=== PATIENT | male | born 1975 | race Caucasian/White ===

== ENCOUNTER 2017-07-02 11:32 | Emergency (ER) | payer OTHER ==
[~2017-07-02] VITALS: Wt 80.0 kg
[2017-07-02] MEDS ORDERED: METOCLOPRAMIDE 10 MG INJ IV ONE (12:00)
[2017-07-02] MEDS ORDERED: DIPHENHYDRAMINE 50 MG INJ IV ONE (12:00)
[2017-07-02] MEDS ORDERED: SOD CHLORIDE 0.9% 1,000 ML IV ONE (12:00)
[2017-07-02] MEDS ORDERED: BUTA1CAP38 PO (12:20)
--- NOTE | 2017-07-02 12:24 | ERD ---
ER Documentation Chief Complaint Date/Time DATE: 07/02/17 TIME: 12:21 Chief Complaint HEADACHE, NAUSEA, VOMITING, NO CP HPI 41-year-old male with a history of epilepsy comes in for a headache that has been going on for 2 days. The headache is generalized he does have some photophobia with it. He has no neurological symptoms currently. He did try taking ibuprofen with minimal relief. Is no fevers chills or weakness. ROS All systems reviewed and are negative except as per history of present illness. Medications Home Meds Active Scripts Vdydelkrwq-Zsavtpjzcthxu-Ssjyfjsd* (Fioricet*) 50-300-40 Mg Capsule, 1 CAP PO Q4H Y for HEADACHE, #14 CAP Prov:JOSEPH ALMAGUER DO 07/02/17 Allergies Allergies: Coded Allergies: No Known Allergy (Unverified , 07/02/17) PMhx/Soc History of Surgery: Yes (LEFT PACEMAKER) Anesthesia Reaction: No Hx Neurological Disorder: Yes (EPILEPSY) Hx Respiratory Disorders: No Hx Cardiac Disorders: Yes (PACEMAKER) Hx Psychiatric Problems: No Hx Miscellaneous Medical Probl: No Hx Alcohol Use: No Hx Substance Use: No Hx Tobacco Use: No Smoking Status: Never smoker Physical Exam Vitals Vital Signs Date Time Temp Pulse Resp B/P Pulse Ox O2 Delivery O2 Flow Rate FiO2 07/02/17 12:02 97.5 67 18 143/77 97 Room Air 07/02/17 11:35 96.6 72 18 125/82 97 Physical Exam Const: [] Mild distress Head: Atraumatic Eyes: Normal Conjunctiva, EOMI, PERRLA ENT: Normal External Ears, Nose and Mouth. Neck: Full range of motion..~ No meningismus. Abd: Soft, non tender, non distended. Normal bowel sounds Skin: No petechiae or rashes Neur: Awake and alert and oriented 3, cranial 2 through 12 intact, no cerebellar deficits, normal gait Psych: Normal Mood and Affect Results 24 hrs Current Medications Medications (Trade) Dose Ordered Sig/Andreina Route PRN Reason Start Time Stop Time Status Last Admin Dose Admin Sodium Chloride (NS) 1,000 ml @ 1,000 mls/hr Q1H ONCE IV 07/02/17 12:00 07/02/17 12:59 07/02/17 11:56 Diphenhydramine HCl (Benadryl) 12.5 mg ONCE ONCE IV 07/02/17 12:00 07/02/17 12:01 DC 07/02/17 11:55 Metoclopramide HCl (Reglan) 10 mg ONCE ONCE IV 07/02/17 12:00 07/02/17 12:01 DC 07/02/17 11:55 Procedures/MDM 1-year-old male with acute headache. Today she gets headaches about once a month. This is an unusual headache for him. Did not respond well to home ibuprofen. He was given a headache cocktail here normal saline, Benadryl IV, Reglan 10 mg IV. This reduces headache quickly. He is now only tired resulting from the Benadryl. Normal neurological exam. My discharge her with instructions to follow-up with his primary care doctor next 2-3 days and call his neurologist. Discharging with Fiangelaet Departure Diagnosis: Primary Impression: Acute headache Condition: Stable Patient Instructions: Headache, Unspecified Referrals: [facility], [facility]1983 CLINICS YOU HAVE RECEIVED A MEDICAL SCREENING EXAM AND THE RESULTS INDICATE THAT YOU DO NOT HAVE A CONDITION THAT REQUIRES URGENT TREATMENT IN THE EMERGENCY DEPARTMENT. FURTHER EVALUATION AND TREATMENT OF YOUR CONDITION CAN WAIT UNTIL YOU ARE SEEN IN YOUR DOCTORS OFFICE WITHIN THE NEXT 1-2 DAYS. IT IS YOUR RESPONSIBILITY TO MAKE AN APPOINTMENT FOR FOLOW-UP CARE. IF YOU HAVE A PRIMARY DOCTOR --you should call your primary doctor and schedule an appointment IF YOU DO NOT HAVE A PRIMARY DOCTOR YOU CAN CALL OUR PHYSICIAN REFERRAL HOTLINE AT IF YOU CAN NOT AFFORD TO SEE A PHYSICIAN YOU CAN CHOSE FROM THE FOLLOWING [facility], [facility] CLINICS [facility] [address] [facility]. [place] [address] [facility] [facility] [address] [facility] [facility] [address] [facility]. [facility] [address] [facility]. [facility]. [address] Additional Instructions: Llame al doctor NORMA y tresa elsi PRATIMA PARA DENTRO DE 2-3 MCDERMOTT.Dgale a la secretaria que nosotros le instruimos hacer esta pratima.Avise o llame si evangelista condicin se empeora antes de la pratima. Regresa aqui si peor o no mejor. JOSEPH ALMAGUER DO Jul 02, 2017 12:24
[2017-07-02 13:21] VITALS: BP 155/92; PULSE 59; RESP 18; TEMP 97.5
== END 2017-07-02 13:22 | disposition home or self-care (01) ==
LOC: E/R 11:32
DX: R51 Headache (principal); R40.2252 Coma scale, best verbal response, oriented, at arrival to emergency department; R40.2142 Coma scale, eyes open, spontaneous, at arrival to emergency department; R40.2362 Coma scale, best motor response, obeys commands, at arrival to emergency department; Z95.0 Presence of cardiac pacemaker
CPT/HCPCS: 96374; 96375; J1200; J2765; J7030; Z7502